=== PATIENT | female | born 1945 | race Caucasian/White ===

== ENCOUNTER 2019-09-16 08:15 | Outpatient (CLI) | payer MEDICARE, OTHER ==
[2019-09-16] VITALS (10 sets, daily range): BP systolic 151–191; BP diastolic 40–66
[~2019-09-16] VITALS: Ht 165.1 cm; Wt 85.0 kg
[2019-09-16] MEDS ORDERED: nitroGLYCERIN 0.4mg SUBLingual tab SL PRN (09:10)
[2019-09-16] MEDS ORDERED: aminophylline 250mg/10ml inj. IV PRN (09:10)
[2019-09-16] MEDS ORDERED: regadenoson 0.4mg/5ml syringe IV ONE (09:10)
[2019-09-16] MEDS ORDERED: normal saline 500ml IV soln 500 ML IV ONE (09:10)
== END 2019-09-16 23:59 | disposition home or self-care (01) ==
LOC: RAD 08:15
PROVIDERS: ATTEND Internal Medicine Cardiovascular Disease
DX: I48.91 Unspecified atrial fibrillation (principal); M19.90 Unspecified osteoarthritis, unspecified site; Z01.818 Encounter for other preprocedural examination
CPT/HCPCS: 76937; 78452; 93017; A9500; J2785; J7040